=== PATIENT | female | born 1990 | race American Indian/Alaskan Native ===

== ENCOUNTER 2018-06-22 16:10 | Emergency (ER) | payer OTHER ==
[2018-06-22 16:30] VITALS: BP 109/71; PULSE 90; RESP 18; TEMP 98.4; O2SAT 98; BMI 27.6
--- NOTE | 2018-06-22 17:37 | ED PDOC ---
Arrival/HPI - General Chief Complaint: Abnormal Skin Integrity Time Seen by Provider: 06/22/18 16:11 Historian: Patient - History of Present Illness Narrative History of Present Illness (Text): 28 year old female with past medical history of multiple skin abscesses presents to the emergency department complaining of abscess to the right axilla x four days. Patient states that this feels like abscesses that she has had in the past and that originally it was indurated but has now become more swollen with associated fluctuance and surrounding skin redness/warmth. Patient has been applying warm compresses without relief. She has not taken any medication for pain. In the past she has had abscesses drained in the ED and has been taken to the operating room for incision and drainage at [facility]. Denies fevers, chills, numbness, weakness, paresthesias, wound drainage, dizziness, nausea, vomiting, headache, chest pain, shortness of breath, or any other associated symptoms Past Medical History - Provider Review Nursing Documentation Reviewed: Yes Primary Care Provider: Non [facility] Provider, - Psychiatric Hx Substance Use: Yes Family/Social History - Physician Review Nursing Documentation Reviewed: Yes Family/Social History: No Known Family HX Smoking Status: Current Some Days Smoker Hx Alcohol Use: Yes Frequency of alcohol use: Socially Hx Substance Use: Yes Substance used: marijuana Allergies/Home Meds Allergies/Adverse Reactions: Allergies No Known Allergies Allergy (Verified 06/22/18 16:42) Physical Exam Vital Signs Temp Pulse Resp BP Pulse Ox 06/22/18 16:30 98.4 F 90 18 109/71 98 Disposition/Present on Arrival - Present on Arrival Any Indicators Present on Arrival: No History of DVT/PE: No History of Uncontrolled Diabetes: No Urinary Catheter: No History of Decub. Ulcer: No History Surgical Site Infection Following: None - Disposition Have Diagnosis and Disposition been Completed?: Yes Diagnosis: Abscess, Left against medical advice Disposition: ELOPEMENT - ER ONLY Disposition Time: 17:05 Patient Problems: Current Active Problems Problem Status Onset Abscess Acute Left against medical advice Acute Condition: GUARDED Discharge Instructions (ExitCare): Skin Abscess, Abscess Incision and Drainage (DC) Additional Instructions: Keflex every 6 hours for 1 week Bactrim every 12 hours for 1 week Warm compresses 4-5 times daily for 20 minutes RETURN IF YOU WISH TO BE REEVALUATED OR IF NEW/WORSENING SYMPTOMS DEVELOP Followup with primary doctor within 2 days Prescriptions: Cephalexin [Keflex] 500 mg PO QID 7 Days #28 capsule Sulfamethoxazole/Trimethoprim [Bactrim DS 800 mg-160 mg] 1 tab PO Q12 #14 tab Referrals: [facility] [place] - Follow up with primary Montez Wilcox MD [Medical Doctor] - Follow up with primary Mariana Pace MD [Medical Doctor] - Follow up with primary Forms: [email or web address] (Indonesian)
== END 2018-06-22 22:10 | disposition left against medical advice (07) ==
LOC: MERGE 16:10 → ED 16:10
DX: L02.411 Cutaneous abscess of right axilla (principal)